=== PATIENT | female | born 1945 | race Asian ===

== ENCOUNTER 2024-03-05 12:12 | Emergency (ER) | payer MEDICARE ==
[~2024-03-05] VITALS: Ht 162.6 cm; Wt 68.2 kg
[2024-03-05 12:49] VITALS: TEMP 98.2
[2024-03-05] MEDS ORDERED: TRAM50TA5 PO (16:02)
[2024-03-05 16:13] VITALS: BP 128/73; PULSE 63; RESP 18
== END 2024-03-05 16:16 | disposition home or self-care (01) ==
LOC: EMS 12:12
DX: R07.89 Other chest pain (principal); J45.909 Unspecified asthma, uncomplicated; I10 Essential (primary) hypertension; Z98.890 Other specified postprocedural states
CPT/HCPCS: 71100; 99283

== ENCOUNTER 2024-05-26 11:26 | Emergency (ER) | payer MEDICARE, MEDICAID ==
[~2024-05-26] VITALS: Ht 162.6 cm; Wt 54.5 kg
[~2024-05-26 11:26] MED LIST: TRAM50TA5 PO
[2024-05-26 11:40] VITALS: BP 111/62; PULSE 66; RESP 16; TEMP 98
[2024-05-26 13:16] LABS: BASOPHILS % (AUTO) 0.7 % (0.0-2.0); EOSINOPHILS % (AUTO) 2.6 % (1.0-6.0); HEMATOCRIT 39.1 % (36-46); HEMOGLOBIN 12.8 g/dL (12.0-16.0); LYMPHOCYTES % (AUTO) 29.1 % (22.0-44.0); MEAN CORPUSCULAR HGB CONC 32.8 G/dL (31.0-37.0); MEAN CORPUSCULAR VOLUME 95 fL (80-100); MONOCYTES # (AUTO) 0.5 K/uL (0.1-1.0); MONOCYTES % (AUTO) 7.4 % (2.0-9.0); NEUTROPHILS # (AUTO) 4.2 K/uL (1.8-7.7); NEUTROPHILS % (AUTO) 60.2 % (40.0-70.0); PLATELET COUNT (AUTO) 295 K/uL (150-450); RED BLOOD CELL COUNT(AUTO) 4.14 MIL/uL (4.00-5.20); RED CELL DISTRIBUTION WIDTH 13.6 % (11.5-14.5); WHITE BLOOD COUNT (AUTO) 6.9 K/uL (4.5-11.0)
[2024-05-26 13:23] LABS: CREATININE 1.32 mg/dL (0.60-1.30); POTASSIUM 3.7 mmol/L (3.5-5.1)
[2024-05-26 13:24] LABS: CALCIUM, TOTAL 8.6 mg/dL (8.8-10.5)
== END 2024-05-26 15:40 | disposition home or self-care (01) ==
LOC: EMS 12:34
DX: S05.11XA Contusion of eyeball and orbital tissues, right eye, initial encounter (principal); J45.909 Unspecified asthma, uncomplicated; I10 Essential (primary) hypertension; Z98.890 Other specified postprocedural states; W19.XXXA Unspecified fall, initial encounter; Y93.89 Activity, other specified; Y92.89 Other specified places as the place of occurrence of the external cause; Y99.8 Other external cause status
CPT/HCPCS: 70450; 70486; 80048; 85025; 99284

== ENCOUNTER 2024-12-30 22:17 | Emergency (ER) | payer OTHER ==
[~2024-12-30] VITALS: Ht 157.5 cm; Wt 62.0 kg
[2024-12-30 22:22] VITALS: BP 140/90; PULSE 57; RESP 16; TEMP 98.3; O2SAT 98
[2024-12-30] MEDS ORDERED: LEVO50 PO (22:46)
[2024-12-30] MEDS ORDERED: LOSA25TA41 PO (22:46)
[2024-12-30 23:58] LABS: BASOPHILS % (AUTO) 0.7 % (0.0-2.0); EOSINOPHILS % (AUTO) 2.5 % (1.0-6.0); HEMOGLOBIN 13.1 g/dL (12.0-16.0); LYMPHOCYTES # (AUTO) 2.4 K/uL (1.0-4.8); LYMPHOCYTES % (AUTO) 31.7 % (22.0-44.0); MEAN CORPUSCULAR HEMOGLOBIN 30.8 pg (26.0-34.0); MEAN CORPUSCULAR HGB CONC 32.9 G/dL (31.0-37.0); MEAN CORPUSCULAR VOLUME 94 fL (80-100); MONOCYTES # (AUTO) 0.5 K/uL (0.1-1.0); MONOCYTES % (AUTO) 7.1 % (2.0-9.0); NEUTROPHILS # (AUTO) 4.4 K/uL (1.8-7.7); PLATELET COUNT (AUTO) 283 K/uL (150-450); RED BLOOD CELL COUNT(AUTO) 4.26 MIL/uL (4.00-5.20); RED CELL DISTRIBUTION WIDTH 13.2 % (11.5-14.5); WHITE BLOOD COUNT (AUTO) 7.6 K/uL (4.5-11.0)
[2024-12-31 00:05] LABS: ANION GAP 7 mmol/L (8-16); CALCIUM, TOTAL 9.1 mg/dL (8.8-10.5); CARBON DIOXIDE 29 mmol/L (22-29); CHLORIDE 105 mmol/L (98-107); CREATININE 1.14 mg/dL (0.60-1.30); GLOMERULAR FILTR. RATE CALC 46 mL/min (>60); GLUCOSE,RANDOM 111 mg/dL (70-110); SODIUM SERUM 141 mmol/L (136-145); UREA NITROGEN, BLOOD 17 mg/dL (7-18)
[2024-12-31 00:06] LABS: TROPONIN I-HIGH SENSITIVITY 33 ng/L (<51)
[2024-12-31 00:09] LABS: B-TYPE NATRIURETIC PEPTIDE 9 pg/mL (0-100)
[2024-12-31 00:10] LABS: ALBUMIN 3.1 g/dL (3.4-5.0); BILIRUBIN,DIRECT 0.1 mg/dL (0.00-0.20); BILIRUBIN,TOTAL 0.4 mg/dL (0.1-1.0); TOTAL PROTEIN, SERUM 7.4 g/dL (6.4-8.2)
[2024-12-31] MEDS: SODIUM CHLORIDE 0.9% 1,000 ML IV ONE (00:40)
[2024-12-31 00:47] LABS: APPEARANCE,URINE CLEAR (CLEAR); BILIRUBIN,URINE NEGATIVE (NEGATIVE); COLOR,URINE LIGHT YELLOW (YELLOW); GLUCOSE, URINE (UA) NEGATIVE (NEGATIVE); KETONES,URINE NEGATIVE (NEGATIVE); LEUKOCYTE ESTERASE ,URINE LARGE (NEGATIVE); NITRATE,URINE NEGATIVE (NEGATIVE); OCCULT BLOOD,URINE NEGATIVE (NEGATIVE); PH,URINE 5.5 (5.0-8.0); PROTEIN,URINE NEGATIVE (NEGATIVE); SPECIFIC GRAVITIY, URINE 1.015 (1.003-1.030); UROBILINOGEN,URINE <=1.0 mg/dL (<=1.0)
[2024-12-31 00:53] LABS: BACTERIA,URINE None Seen /HPF (None Seen); RBC,URINE None Seen /HPF (0-2); SQUAMOUS EPITHELIAL CELL,UR Few /LPF (None Seen)
[2024-12-31] MEDS ORDERED: CEPH-558 PO (00:54)
[2024-12-31] MEDS: CEPHALEXIN MONOHYDRATE 500 MG CAPSULE PO ONE (01:05)
== END 2024-12-31 01:11 | disposition home or self-care (01) ==
LOC: EMS 22:18
DX: N39.0 Urinary tract infection, site not specified (principal); R42 Dizziness and giddiness; J45.909 Unspecified asthma, uncomplicated; I10 Essential (primary) hypertension; Z79.899 Other long term (current) drug therapy
CPT/HCPCS: 71045; 80048; 80076; 81001; 83880; 84484; 85025; 87086; 93005; 99285; 36415-L1; 36415-TC

== ENCOUNTER 2025-06-25 12:42 | Emergency (ER) | payer OTHER ==
[~2025-06-25] VITALS: Ht 154.9 cm; Wt 59.1 kg
[~2025-06-25 12:42] MED LIST changes: +CEPH-558 PO; +LEVO50 PO; +LOSA25TA41 PO
[2025-06-25 12:47] VITALS: TEMP 98
[2025-06-25] MEDS ORDERED: FLUT1BLS3 IH (12:50)
[2025-06-25] MEDS ORDERED: MONT-40 PO (12:50)
[2025-06-25] MEDS ORDERED: LEVO50TA11 PO (12:50)
[2025-06-25] MEDS ORDERED: LOSA-382 PO (12:50)
[2025-06-25] MEDS ORDERED: IOHEXOL 350 MG/ML 100 ML VIAL ONE (13:00)
[2025-06-25] MEDS: ACETAMINOPHEN 500 MG TABLET PO ONE (13:27)
[2025-06-25] MEDS: LIDOCAINE 5% TRANSDERMAL PATCH TD ONE (13:32)
[2025-06-25] MEDS ORDERED: ACET-2247 PO (15:35)
[2025-06-25 16:18] VITALS: BP 132/72; PULSE 62; RESP 18; O2SAT 97
== END 2025-06-25 16:26 | disposition home or self-care (01) ==
LOC: EMS 12:50
DX: S30.0XXA Contusion of lower back and pelvis, initial encounter (principal); E03.9 Hypothyroidism, unspecified; I10 Essential (primary) hypertension; J45.909 Unspecified asthma, uncomplicated; M53.3 Sacrococcygeal disorders, not elsewhere classified; Z79.890 Hormone replacement therapy; Z79.899 Other long term (current) drug therapy; W19.XXXA Unspecified fall, initial encounter; Y93.89 Activity, other specified; Y92.89 Other specified places as the place of occurrence of the external cause; Y99.8 Other external cause status
CPT/HCPCS: 99285; 72131; 72192; Q9967